=== PATIENT | male | born 1990 | race Hispanic/Latino ===

== ENCOUNTER 2020-05-10 16:54 | Emergency (ER) | payer OTHER ==
[~2020-05-10] VITALS: Ht 182.9 cm; Wt 96.0 kg
[2020-05-10 16:55] VITALS: BP 135/66
[2020-05-10] MEDS ORDERED: AUGM875T28 PO (17:39)
[2020-05-10] MEDS ORDERED: PSEU120T3 PO (17:39)
[2020-05-10] MEDS ORDERED: MUCI600T31 PO (17:39)
[2020-05-10] MEDS ORDERED: FLON1SPR NARES (17:39)
== END 2020-05-10 17:47 | disposition home or self-care (01) ==
LOC: M ED 16:54 → EEVIPCON 16:54 → M ED 17:47
DX: U07.1 COVID-19 (principal); J31.0 Chronic rhinitis
CPT/HCPCS: 99282; U0003

== ENCOUNTER 2020-07-01 22:47 | Emergency (ER) | payer OTHER ==
[~2020-07-01] VITALS: Ht 182.9 cm; Wt 99.0 kg
[~2020-07-01 22:47] MED LIST: AUGM875T28 PO; FLON1SPR NARES; MUCI600T31 PO; PSEU120T3 PO
[2020-07-02] MEDS ORDERED: METHOCARBAMOL 1,000 MG/10 ML VIAL (J2800) IV ONE (00:30)
[2020-07-02] MEDS ORDERED: KETOROLAC 30 MG/ML 1ML VIAL IV ONE (00:30)
[2020-07-02] MEDS ORDERED: ROBA750T4 PO (02:07)
[2020-07-02] MEDS ORDERED: NAPR-837 PO (02:07)
[2020-07-02] MEDS ORDERED: OXYCODONE/APAP 5MG/325MG(BULK FOR ED) 1 TABLET PO ONE (02:15)
[2020-07-02 02:55] VITALS: BP 142/65
== END 2020-07-02 03:00 | disposition home or self-care (01) ==
LOC: M ED 22:47
DX: M54.5 Low back pain (principal); X50.0XXA Overexertion from strenuous movement or load, initial encounter; Y92.89 Other specified places as the place of occurrence of the external cause; Y93.B3 Activity, free weights; Y99.1 Military activity
CPT/HCPCS: 96374; 96375; 99284; J1885; J2800